=== PATIENT | female | born 2000 | race Hispanic/Latino ===

== ENCOUNTER → 2025-01-23 | Outpatient (CLI) | payer BC ==
[~2025-01-23] MED LIST: GADOTERATE MEGLUMINE 5 MMOL/10 ML VIAL IV ONE; IOHEXOL 180 MG/ML 20 ML VIAL ONE
--- NOTE | 2025-01-23 11:03 | HMCIMG ---
MR SHOULDER LEFT WWO HISTORY: Left shoulder pain COMPARISON: None TECHNIQUE: MRI of the left shoulder was performed utilizing multiple pulse sequences in axial, coronal and sagittal planes. Patient was not given contrast through intravenous route. Patient is status post arthrogram. FINDINGS: No abnormal signal intensity is seen of the visualized bony structure. Hypertrophic degenerative changes are seen of the acromioclavicular joint. There is downward sloping of acromion in a medial to lateral direction encroaching upon the rotator cuff tendon and muscles. There is rotator cuff tendinosis. The glenoid labrum is intact. Bicipital tendon is seen within its groove. No appreciable amount of joint effusion is seen. No evidence of complete rotator cuff tendon tear is seen. No extravasation of contrast is seen. IMPRESSION: 1. No evidence of complete rotator cuff tendon tear is seen. No extravasation of contrast is seen.
--- NOTE | 2025-01-23 15:45 | HMCIMG ---
[facility]IDE NDL [facility] IR HISTORY: No additional history given. COMPARISON: None TECHNIQUE: Informed consent was obtained. Risks and benefits were explained to the patient. A timeout was performed. Patient was prepped and draped in a sterile fashion. Local anesthetics was given as required. Under fluoroscopic guidance, left glenohumeral joint space was localized. 2 cc of Omnipaque was used for testing purposes. Diluted MRI contrast was injected intra-articularly. FINDINGS: Patient tolerated procedure without complication. Patient left the department in good condition. IMPRESSION: 1. Uncomplicated fluoroscopic guidance arthrogram.
== END | disposition home or self-care (01) ==
LOC: RAH 07:42
PROVIDERS: ATTEND Family Medicine Sports Medicine
DX: S46.012D Strain of muscle(s) and tendon(s) of the rotator cuff of left shoulder, subsequent encounter (principal); M25.512 Pain in left shoulder; M25.212 Flail joint, left shoulder; M75.42 Impingement syndrome of left shoulder; M25.412 Effusion, left shoulder; M75.52 Bursitis of left shoulder; X58.XXXD Exposure to other specified factors, subsequent encounter
CPT/HCPCS: 73223; 77002; 23350; Q9965; A9575